=== PATIENT | male | born 2000 | race Hispanic/Latino ===

== ENCOUNTER 2020-02-16 15:41 | Emergency (ER) | payer OTHER ==
[~2020-02-16] VITALS: Ht 177.8 cm; Wt 99.0 kg
[2020-02-16 15:42] VITALS: BP 122/65
[2020-02-16] MEDS ORDERED: CYCL-707 PO (15:53)
[2020-02-16] MEDS ORDERED: ACET1TAB55 PO (15:53)
[2020-02-16] MEDS ORDERED: IBUP-1114 PO (15:53)
[2020-02-16] MEDS ORDERED: ACETAMINOPHEN TAB 650MG DOSE (2X325MG) PO ONE (16:45)
[2020-02-16] MEDS ORDERED: GI COCKTAIL 50ML BTL(HYOSCYAMINE/MAALOX/LIDOCAINE VISCOUS)(1:3:1) PO ONE (16:45)
--- NOTE | 2020-02-16 19:08 | ECGEPIP ---
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
== END 2020-02-16 17:56 | disposition home or self-care (01) ==
LOC: M ED 15:41
DX: R07.89 Other chest pain (principal); Z20.828 Contact with and (suspected) exposure to other viral communicable diseases; F17.210 Nicotine dependence, cigarettes, uncomplicated
CPT/HCPCS: 93005; 99284; U0003